=== PATIENT | male | born 1980 | race Caucasian/White ===

== ENCOUNTER 2019-12-09 12:53 | Emergency (ER) | payer OTHER ==
[2019-12-09 12:57] VITALS: BP 147/85; PULSE 70; TEMP 98; BMI 22.8
[2019-12-09] MEDS ORDERED: KETOROLAC TROMETHAMINE 30 MG/1 ML VIAL IM ONE (15:26)
--- NOTE | 2019-12-09 15:26 | PDOC ---
History of Present Illness - General Chief Complaint: Toothache Stated Complaint: TOOTHACHE Time Seen by Provider: 12/09/19 13:40 History Source: Patient Exam Limitations: Clinical Condition - History of Present Illness Initial Comments: 12/09/19 15:21 Patient with past medical history of multiple dental caries present with complaint of 3-day history of pain to left upper teeth over area of partially broken teeth. Patient report calling dental office for symptoms but could not be seen until 2 days time. Patient report taking Advil PM for symptoms with no improvement Is this a multiple visit Asthma Patient?: No Past History - Past Medical History Allergies/Adverse Reactions: Allergies Allergy/AdvReac Type Severity Reaction Status Date / Time No Known Allergies Allergy Verified 12/09/19 12:57 Home Medications: Ambulatory Orders Ibuprofen 800 mg PO Q8H PRN #20 tablet 12/09/19 COPD: No - Psycho Social/Smoking Cessation Hx Smoking History: Never smoked Review of Systems - Review of Systems Able to Perform ROS?: Yes Is the patient limited Lao proficient: No Constitutional: No: Chills, Fever HEENTM: Yes: Symptoms Reported, See HPI, Dental Problems. No: Eye Pain, Blurred Vision, Tearing, Recent change in vision, Double Vision, Cataracts, Ear Pain, Ocular Prothesis, Ear Discharge, Nose Pain, Nose Congestion, Tinnitus, Nose Bleeding, Hearing Loss, Throat Pain, Throat Swelling, Mouth Pain, Difficulty Swallowing, Mouth Swelling, Other Respiratory: No: Symptoms reported, See HPI, Cough, Orthopnea, Shortness of Breath, SOB with Exertion, SOB at Rest, Stridor, Wheezing, Productive cough, Hemoptysis, Other Cardiac (ROS): No: Symptoms Reported, See HPI, Chest Pain, Edema, Irregular Heart Rate, Lightheadedness, Palpitations, Syncope, Chest Tightness, Other ABD/GI: No: Nausea, Vomiting All Other Systems: Reviewed and Negative *Physical Exam - Vital Signs Last Vital Signs Temp Pulse Resp BP Pulse Ox 98 F 70 18 147/85 98 12/09/19 12:55 12/09/19 12:55 12/09/19 12:55 12/09/19 12:55 12/09/19 12:55 - Physical Exam General Appearance: Yes: Nourished, Appropriately Dressed, Mild Distress HEENT: positive: CLAUS, Normal ENT Inspection, Pharynx Normal, Other (multiple dental decays with partial missing dentition to left 1st premolar wih severe dental decay) Neck: positive: Supple Respiratory/Chest: positive: Lungs Clear, Normal Breath Sounds. negative: Respiratory Distress, Accessory Muscle Use Cardiovascular: positive: Regular Rhythm, Regular Rate Musculoskeletal: positive: Normal Inspection Extremity: positive: Normal Inspection Integumentary: positive: Normal Color. negative: Erythema, Swelling Neurologic: positive: Fully Oriented, Alert, Normal Response Medical Decision Making - Medical Decision Making 12/09/19 15:26 Patient with past medical history of multiple dental caries present with complaint of 3-day history of pain to left upper teeth over area of partially broken teeth. Patient report calling dental office for symptoms but could not be seen until 2 days time. Patient report taking Advil PM for symptoms with no improvement Exam significant for multiple decays to upper and lower teeth with partial erupted third with oral pain decay's to left upper premolar to first premolar. Toradol 30 mg ordered for pain. Patient stable for discharge on Motrin for pain with dentist follow-up Discharge - Discharge Information Problems reviewed: Yes Clinical Impression/Diagnosis: Pain, dental, Dental decay Condition: Stable Disposition: HOME - Admission No - Additional Discharge Information Prescriptions: Ibuprofen 800 mg PO Q8H PRN #20 tablet PRN Reason: dental pain - Follow up/Referral Referrals: Urgent Care Dental [Outside] - Patient Discharge Instructions Patient Printed Discharge Instructions: DI for Tooth Decay Additional Instructions: Take prescribed medication as needed for pain. Follow-up with your urgent care dental clinic if unable to see your dentist as discussed today - Post Discharge Activity
[2019-12-09] MEDS ORDERED: KETOROLAC TROMETHAMINE 30 MG/1 ML VIAL ONE (15:35)
== END 2019-12-09 15:48 | disposition home or self-care (01) ==
LOC: JERFT 12:53
PROC: 3E0233Z Introduction of Anti-inflammatory into Muscle, Percutaneous Approach (ICD-10-PCS; principal; 2019-12-09)
DX: K02.9 Dental caries, unspecified (principal)
CPT/HCPCS: 96372; 99284-25